=== PATIENT | male | born 1955 | race Hispanic/Latino ===

== ENCOUNTER 2020-01-06 19:31 | Emergency (ER) | payer BC, SELFPAY ==
[2020-01-06 20:25] LABS: Hemoglobin 17.5 g/dL (14.0-18.0); Mean Corpuscular HGB CONC 33.4 g/dL (32.0-36.0); Mean Corpuscular Hemoglobin 30.1 pg (27.0-31.0); Mean Corpuscular Volume 90.1 fL (78.0-98.0); Platelet Count 164 thou/uL (130-400); RBC Distribution Width 13.1 % (11.5-14.5); White Blood Cell (WBC) Count 18.2 thou/uL (4.8-10.8)
--- NOTE | 2020-01-06 20:25 | RAD ---
XR Chest 1 View Portable History: Chest pain Comparison: Radiograph September 2016 Findings: Lungs are clear. No pneumothorax or effusion. Cardiac silhouette and mediastinal contours a re within normal limits. No acute osseous abnormality. Impression: No acute intrathoracic abnormality.
[2020-01-06 20:30] LABS: Bilirubin Negative (Negative); Blood, Urine Negative (Negative); Clarity Clear (Clear); Glucose, Urine (Dipstick) Normal (Negative); Leukocyte Negative Leu/uL (Negative); Nitrite Negative (Negative); Protein, Urine (Dipstick) Negative (Neg-Trace); Urobilinogen Normal mg/dL (Less than 2)
[2020-01-06 20:44] LABS: Band 6 % (5-11); Eosinophils 2 % (0-10); Large Platelets SLIGHT; Lymphocytes 23 % (21-51); MDiff Complete? YES; Monocytes 5 % (0-10); Neutrophil 40 % (42-75); Platelet Morphology Comment Appears Adequate; Polychromasia SLIGHT = 2-3 cells (100X) (0-2/hpf); Reactive Lymphocytes 24 % (0-10)
[2020-01-06 20:45] LABS: ALT (SGPT) 78 U/L (8-55); AST (SGOT) 33 U/L (5-34); Albumin 4.6 g/dL (3.4-4.8); Alkaline Phosphatase 127 U/L (40-110); Anion Gap 15 mmol/L (10-20); BUN (Urea Nitrogen) 13 mg/dL (8.4-25.7); Bilirubin, Total 0.9 mg/dL (0.2-1.2); Calc. Creatinine Clearance 0 mL/min (70-130); Calcium 9.2 mg/dL (7.8-10.44); Carbon Dioxide 25 mmol/L (23-31); Chloride 101 mmol/L (98-107); Estimated GFR-MDRD 89; Glucose 108 mg/dL (80-115); Lipase 25 U/L (8-78); Potassium 3.9 mmol/L (3.5-5.1); Protein, Total 7.6 g/dL (5.8-8.1); Sodium 137 mmol/L (136-145)
--- NOTE | 2020-01-11 14:33 | EKG ---
Test Reason : EMERGENCY EXAM Blood Pressure : / mmHG Vent. Rate : 072 BPM Atrial Rate : 072 BPM P-R Int : 154 ms QRS Dur : 092 ms QT Int : 390 ms P-R-T Axes : 026 -11 -08 degrees QTc Int : 427 ms Normal sinus rhythm Normal ECG Reconfirmed by YUNIOR MUHAMMAD ([id number]), medical transcription editor BIANCA FISH ([id number]) on 01/11/2020 2:33:24 PM Referred By: Confirmed By:YUNIOR Song
== END 2020-01-06 22:31 | disposition home or self-care (01) ==
LOC: ERS 19:31
DX: R53.81 Other malaise (principal); Z79.891 Long term (current) use of opiate analgesic; Z79.899 Other long term (current) drug therapy
CPT/HCPCS: 36415; 71045; 80053; 81003; 83605; 83690; 83735; 84484; 85025; 93005

== ENCOUNTER 2020-02-22 10:03 | Inpatient (IN) | payer OTHER, SELFPAY ==
[~2020-02-22 10:03] MED LIST: Iopamidol 370 76% 100 ML VIAL ONE
[2020-02-22] MEDS ORDERED: Albuterol 200 PUFF (6.7GM INHALER) ONE (10:34)
[2020-02-22 11:29] LABS: ALT (SGPT) 57 U/L (8-55); AST (SGOT) 54 U/L (5-34); Albumin 3.5 g/dL (3.4-4.8); Alkaline Phosphatase 76 U/L (40-110); Anion Gap 14 mmol/L (10-20); BUN (Urea Nitrogen) 8 mg/dL (8.4-25.7); Bilirubin, Total 0.7 mg/dL (0.2-1.2); Calc. Creatinine Clearance 0 mL/min (70-130); Calcium 8.3 mg/dL (7.8-10.44); Carbon Dioxide 22 mmol/L (23-31); Chloride 99 mmol/L (98-107); Estimated GFR-MDRD Greater than 90; Globulin 3.4 g/dL (2.4-3.5); Glucose 97 mg/dL (80-115); Potassium 4.2 mmol/L (3.5-5.1); Protein, Total 6.9 g/dL (5.8-8.1); Sodium 131 mmol/L (136-145)
[2020-02-22 11:52] LABS: #Lymphocytes 1.8 thou/uL (1.20-3.40); #Monocytes 0.6 thou/uL (0.11-0.59); #Neutrophils 3.4 thou/uL (1.40-6.50); %Eosinophils 0.1 % (0.0-10.0); %Lymphocytes 30.9 % (21.0-51.0); Hemoglobin 15.2 g/dL (14.0-18.0); Mean Corpuscular HGB CONC 32.1 g/dL (32.0-36.0); Mean Corpuscular Volume 90.3 fL (78.0-98.0); Mean Platelet Volume 10.4 fL (7.4-10.4); Platelet Count 115 thou/uL (130-400); Platelet Morphology Comment Appears Adequate; RBC Distribution Width 12.9 % (11.5-14.5); RBC Morphology Normal; Red Blood Cell (RBC) Count 5.24 mill/uL (4.70-6.10); White Blood Cell (WBC) Count 5.8 thou/uL (4.8-10.8)
--- NOTE | 2020-02-22 14:12 | RAD ---
PORTABLE CHEST: 02/22/20 HISTORY: Dyspnea. COVID diagnosis with pneumonia. COMPARISON: 01/06/20. FINDINGS/IMPRESSION: There are now bilateral multifocal infiltrates which have occurred since 01/06/20. Numerous bilateral peripheral infiltrates are seen throughout both lungs consistent with COVID pneumonia. POS: AGW
[2020-02-22] MEDS ORDERED: Ketorolac Tromethamine 30 MG/ML VIAL ONE (14:40)
[2020-02-22 17:10] VITALS: BMI 38.7
[2020-02-22] MEDS ORDERED: Ondansetron PF 4 MG/2 ML Vial IVP PRN ×2 (17:15→19:32)
[2020-02-22] MEDS ORDERED: Ondansetron ODT 4 MG TAB SL PRN (17:15)
[2020-02-22] MEDS ORDERED: Acetaminophen 325 MG TAB PO PRN (17:15)
[2020-02-22] MEDS ORDERED: Benzonatate 100 MG CAP PO PRN (19:32)
[2020-02-22] MEDS ORDERED: Ondansetron ODT 4 MG TAB PO PRN (19:32)
[2020-02-22] MEDS ORDERED: Cepastat Lozenges 1 LOZ PO PRN (19:32)
[2020-02-22] MEDS ORDERED: hydrALAZINE 20 MG/ML VIAL SLOW IVP PRN (19:32)
[2020-02-22] MEDS: Azithromycin 500 MG in Sodium Chloride 0.9% 250 ML 250 ML IVPB SCH (20:48)
[2020-02-22] MEDS: Sodium Chloride 0.9% 1,000 ML IV SCH (20:48)
[2020-02-22] MEDS: Zinc Sulfate 220 MG CAP PO SCH (20:48)
[2020-02-22] MEDS: Famotidine 20 MG TAB PO SCH (20:48)
[2020-02-22] MEDS ORDERED: Carvedilol 3.125 MG TAB PO SCH (21:00)
[2020-02-23] MEDS: PROVENTIL INHALER 6.7 G (200 INHALATIONS) INH SCH ×7 (00:24→22:56)
--- NOTE | 2020-02-23 01:29 | HP ---
PRIMARY CARE PROVIDER: [facility], [place], [place]. CHIEF COMPLAINT: Shortness of breath and general malaise. HISTORY OF PRESENT ILLNESS: This is a 64-year-old male, who presents to [facility] Emergency Department complaining of increasing shortness of breath, fatigue and weakness over the last 7 to 10 days. The patient states he was diagnosed with COVID-19 at [facility] approximately 02/15/2020. The patient states he has been self quarantined at home as he was infected by his daughter, who also infected her and their son, who is 18 years of age. The patient states he has had increasing shortness of breath, chest tightness and productive cough. The patient admits to fever, nausea, decreased appetite and some loss of taste. The patient denied taking any home medication remedy other than Tylenol and [id number]-uwrtoxk cough medicine. The patient also states he took penicillin twice daily, but is unsure of the exact medication. The patient denied any known history of lung disease or travel history. In the emergency room, the patient underwent general evaluation with chest imaging showing bilateral infiltrates confirming pneumonia in the context of COVID-19. Initially, patient was noted 95% on room air. However, temperature was 101.3 degrees Fahrenheit. The patient received Proventil HFA two inhalations x1 and Toradol 30 mg IV push. PAST MEDICAL HISTORY: 1. Gastric ulcers with gastritis. 2. Hypertension. PAST SURGICAL HISTORY: 1. Status post exploratory laparotomy for peptic ulcer disease in [place]. 2. Status post cholecystectomy. CURRENT MEDICATIONS: Unknown and will need to be confirmed with family members. ALLERGIES: NO KNOWN DRUG ALLERGIES. FAMILY HISTORY: No inheritable diseases per patient report. SOCIAL HISTORY: Resides in the [place], [place] area. Lives with family members and is usually functional of all activities of daily living. No current alcohol, tobacco, or illicit drug use. REVIEW OF SYSTEMS: CONSTITUTIONAL: Negative for weight loss or gain, ability to conduct usual activities. SKIN: Negative for rash, itching. EYES: Negative for double vision, pain. ENT/MOUTH: Negative for nose bleeding, neck stiffness, pain, tenderness. CARDIOVASCULAR: Negative for palpitations, dyspnea on exertion, orthopnea. RESPIRATORY: Negative for shortness of breath, wheezing, cough, hemoptysis, fever or night sweats. GASTROINTESTINAL: Negative for poor appetite, abdominal pain, heartburn, nausea, vomiting, constipation, or diarrhea. GENITOURINARY: Negative for urgency, frequency, dysuria, nocturia. MUSCULOSKELETAL: Negative for pain, swelling. NEUROLOGIC/PSYCHIATRIC: Negative for anxiety, depression. ALLERGY/IMMUNOLOGIC: Negative for skin rash, bleeding tendency. Otherwise negative except as stated per HPI. PHYSICAL EXAMINATION: VITAL SIGNS: On admission; blood pressure 108/73, pulse 75, respiratory rate 18, temperature 99.3 degrees Fahrenheit with a T-max of 101.3 degrees Fahrenheit. O2 saturation 89% on 2 L/minute by nasal cannula. GENERAL APPEARANCE: This is a 64-year-old male, in moderate respiratory distress, responsive to questions. HEENT: Pupils are equal, round, reactive to light and accommodation. Extraocular muscles are intact. Mild conjunctival injection. No scleral icterus. Nares patent. OP is clear. Teeth in fair repair. NECK: Supple. No cervical adenopathy. No thyromegaly. No carotid bruits. No JVD appreciated. Cervical spine with full active and passive range of motion. No meningeal signs noted. CHEST: Coarse breath sounds bilaterally with diminished air flow bilaterally. Prolonged expiratory phase and occasional wheezing. CARDIOVASCULAR: S1, S2 with tachycardia. No murmur, rub, or gallop appreciated. ABDOMEN: Obese, soft, nontender, and nondistended. Bowel sounds are positive in all 4 quadrants. There is no hepatosplenomegaly. No abdominal bruits. No rebound or guarding appreciated. EXTREMITIES: Warm and dry with fair turgor. No clubbing, cyanosis, or asymmetric edema appreciated. Pulses palpable distally at the dorsalis pedis, posterior tibial, and popliteal arteries bilaterally. Capillary refill less than 2 seconds. NEUROLOGIC: Cranial nerves 2 through 12 are grossly intact. No focal or lateralizing signs appreciated. PERTINENT LABORATORY AND X-RAY FINDINGS: Sodium 131, potassium 4.2, chloride 99, CO2 of 22, BUN 8, creatinine 0.76, glucose 97, lactic acid level 1.0, calcium 8.3, AST 54, ALT of 57. Troponin I negative x1. BNP 23. CBC showed a white blood cell count of 5.8, hemoglobin 15, hematocrit 47, and platelet count 115, with 59% neutrophils. Portable chest x-ray dated 02/22/2020, showed bilateral multifocal infiltrates, new since previous exam 01/06/2020. Findings consistent with COVID viral infection. EKG dated 02/22/2020 by my interpretation shows sinus mechanism with heart rates in the 80s. Normal R-wave progression noted in the precordial leads. Normal axis. T-wave inversion in leads III and F. ASSESSMENT AND PLAN: 1. COVID-19 and pneumonia. The patient will be admitted to the medical floor. We will place respiratory and droplet isolation. Initiate Zithromax 500 mg IV daily. Add Proventil HFA 2 puffs inhaled q.4 hours. Add zinc sulfate 220 mg p.o. daily. Oxygen as needed to maintain O2 saturations greater than or equal to 90%. Consider Infectious Disease consultation in the next 24 hours. 2. Acute hypoxic respiratory failure secondary to #1. See #1 above. Continue oxygen supplementation and titrate to clinical response. 3. Thrombocytopenia. Suspect secondary to #1. Continue serial platelet trending. Avoid heparin or low-molecular weight heparin. 4. Hyponatremia. Suspect secondary to poor oral intake. We will continue intravenous normal saline at 75 mL/h. Encourage increased p.o. intake of regular diet. Serial sodium monitoring. 5. Prophylaxis. Pepcid 20 mg p.o. b.i.d. Respiratory isolation per protocol. 6. Code status is full. Surrogate medical decision maker is the patient's daughter. Job ID: [id number]
[2020-02-23 05:51] LABS: Anion Gap 14 mmol/L (10-20); BUN (Urea Nitrogen) 15 mg/dL (8.4-25.7); Calc. Creatinine Clearance 162 mL/min (70-130); Carbon Dioxide 22 mmol/L (23-31); Chloride 102 mmol/L (98-107); Estimated GFR-MDRD Greater than 90; Glucose 99 mg/dL (80-115); Potassium 4.1 mmol/L (3.5-5.1); Sodium 134 mmol/L (136-145)
[2020-02-23 05:55] LABS: Band 8 % (5-11); Hemoglobin 14.6 g/dL (14.0-18.0); Lymphocytes 19 % (21-51); MDiff Complete? YES; Mean Corpuscular HGB CONC 32.2 g/dL (32.0-36.0); Mean Corpuscular Hemoglobin 29.3 pg (27.0-31.0); Mean Corpuscular Volume 90.9 fL (78.0-98.0); Mean Platelet Volume 9.9 fL (7.4-10.4); Monocytes 4 % (0-10); Neutrophil 69 % (42-75); Platelet Count 135 thou/uL (130-400); Platelet Morphology Comment Appears Adequate; RBC Morphology Normal; Red Blood Cell (RBC) Count 4.97 mill/uL (4.70-6.10); White Blood Cell (WBC) Count 5.9 thou/uL (4.8-10.8)
--- NOTE | 2020-02-23 07:49 | CT ---
PRELIMINARY REPORT/[facility]/EMERGENCY AFTER HOURS PROCEDURE This report was discussed with Kasey Guido RN by Dianne Bravo on February 23, 2020 00:46:00 C DT. Addendum electronically signed by Dianne Bravo on February 23, 2020 12:47:[address] ANGIOGRAM OF THE CHEST CLINICAL HISTORY: Slurred speech TECHNIQUE: Axial images obtained. Coronal images obtained. Sagittal images obtained. Exam is performe d with administration of 100 ml of Isovue-370 intravenous contrast. 3D maximum intensity projections (MIPs) were performed. Per PQRS, CT exam is performed using one or more of the following dose reducti on technique: Automated exposure control, adjustment of mA and/or KV according to patient size, or us e of iterative reconstruction techniques. COMPARISON: None. FINDINGS: Post-contrast appearance of the pulmonary arteries shows no evidence for filling defect. No rmal caliber of pulmonary trunk in relationship to the aorta. Aorta is negative for aortic dissection and aortic aneurysm. No effusion. Extensive consolidations are seen throughout the lung leone sugge sting pneumonia. Coronavirus is in the differential. Negative for pneumothorax. Small mediastinal and hilar lymph nodes are seen. Fatty infiltration of th e liver is seen. Mild disc space narrowing and osteophyte formation of the thoracic spine is seen at multiple levels. The rest of the solid organs, viscera, and bones are unremarkable. IMPRESSION: 1. Negative for pulmonary embolism, aortic aneurysm, or aortic dissection. 2. Extensive consolidations throughout the lung leone suggesting pneumonia. Coronavirus is in the di fferential. ELECTRONICALLY SIGNED BY: Yvan Golden MD February 23, 2020 12:41:25 AM CDT FINAL REPORT CT PULMONARY ANGIOGRAM WITH IV CONTRAST AND 3D POSTPROCESSING: I agree with the preliminary report given by Dr. Yvan Golden of [facility]. Please note there is poor visualization of the peripheral branches of pulmonary arterial vasculature. There is no evid ence of central pulmonary embolism. Peripheral embolism could not be excluded on this exam. Scatter ed round-glass and consolidative changes are consistent with pneumonia with malloy virus in the diffe rential. POS: DANI
[2020-02-23] MEDS: Famotidine 20 MG TAB PO SCH ×2 (08:04→20:25)
[2020-02-23] MEDS: Sodium Chloride 0.9% 1,000 ML IV SCH ×2 (08:04→22:21)
--- NOTE | 2020-02-23 17:14 | PDOC.HOSPP ---
- Subjective Encounter Date: 02/23/20 Encounter Time: 16:45 Subjective: f/u for COVID-19 PNA on Zithromax/IVF's/Zinc. Still requiring O2 by NC and feels SOB with minimal exertion. - Objective Vital Signs & Weight: Vital Signs (12 hours) Temp Pulse Resp BP Pulse Ox 02/23/20 13:00 98.2 F 82 22 H 128/76 97 02/23/20 10:33 74 22 H 02/23/20 08:00 98.4 F 74 24 H 111/78 95 02/23/20 06:41 70 96 02/23/20 05:15 98.5 F 75 32 H 115/81 93 L Weight Weight 270 lb I&O: 02/22/20 02/23/20 02/24/20 06:59 06:59 06:59 Intake Total 1162.5 480 Balance 1162.5 480 Result Diagrams: 02/23/20 05:17 02/23/20 05:17 Additional Labs: Microbiology 02/22/20 10:43 Venous blood - Right Hand Blood Culture - Preliminary Specimen has been received and culture in progress. No Growth to date. 02/22/20 10:35 Venous blood - Left Arm Blood Culture - Preliminary Specimen has been received and culture in progress. No Growth to date. Laboratory Tests 02/22/20 02/22/20 02/22/20 10:58 10:58 20:32 Plt Count 115 L D-Dimer Ferritin 1790.67 H B-Natriuretic Peptide 23.2 02/22/20 20:32 Plt Count D-Dimer 0.60 H Ferritin B-Natriuretic Peptide Radiology Reviewed by me: Yes (CTA chest - no PE, diffuse bilat infiltrates) Hospitalist ROS - Medication Medications: Active Medications Generic Name Dose Route Start Last Admin Trade Name Freq PRN Reason Stop Dose Admin Albuterol Sulfate 2 puff 02/22/20 22:30 02/23/20 14:36 Proventil Hfa INH 2 puff [id number] MIREYA Administration Famotidine 20 mg 02/22/20 21:00 02/23/20 08:04 Pepcid PO 20 mg BID MIREYA Administration Sodium Chloride 1,000 mls @ 75 mls/hr 02/22/20 19:32 02/23/20 08:04 Normal Saline 0.9% IV 1,000 mls .[id number] MIREYA Administration Azithromycin 500 mg/ Sodium 250 mls @ 250 mls/hr 02/22/20 20:00 02/22/20 20: 48 Chloride IVPB 250 mls Q24HR MIREYA Administration Zinc Sulfate 220 mg 02/22/20 21:00 02/22/20 20:48 Zinc Sulfate PO 220 mg HS MIREYA Administration - Exam General Appearance: NAD, awake alert Eye: PERRL, anicteric sclera ENT: normocephalic atraumatic, no oropharyngeal lesions Neck: supple, symmetric, no JVD, no thyromegaly Heart: RRR, no murmur, no gallops, no rubs, normal peripheral pulses Heart - other findings: S1, S2 Respiratory - other findings: coarse sounds bilat, diminished, exp wheeze Gastrointestinal: soft, non-tender, non-distended, normal bowel sounds, no palpable masses Extremities - other findings: R hand with edema with infiltrated IV site Skin: normal turgor Neurological: cranial nerve grossly intact, no new deficit Musculoskeletal: normal tone, normal strength, no muscle wasting Psychiatric: normal affect, A&O x 3 Hosp A/P (1) Pneumonia due to COVID-19 virus Code(s): U07.1 - COVID-19; J12.89 - OTHER VIRAL PNEUMONIA Status: Acute Plan: Continue resp isolation, Zithromax/Hydroxychloroquine/Zinc, ProAir HFA, O2 @ 2L/ min NC (2) Acute respiratory failure with hypoxia Code(s): J96.01 - ACUTE RESPIRATORY FAILURE WITH HYPOXIA Status: Acute Plan: See above (3) Hyponatremia Code(s): E87.1 - HYPO-OSMOLALITY AND HYPONATREMIA Status: Acute Plan: Improved, continue IVF's (4) Thrombocytopenia Code(s): D69.6 - THROMBOCYTOPENIA, UNSPECIFIED Status: Acute Plan: Improved, serial monitoring - Plan continue antibiotics, social work manager, respiratory therapy, out of bed/ambulate , DVT proph w/SCDs Continue Zithromax Continue Plaquenil Resp Isolation Wean O2 as clinically indicated AM lab: BMP
[2020-02-23] MEDS: Azithromycin 500 MG in Sodium Chloride 0.9% 250 ML 250 ML IVPB SCH (19:50)
[2020-02-23] MEDS: Hydroxychloroquine Sulfate 200 MG TAB PO SCH (20:25)
[2020-02-23] MEDS: Zinc Sulfate 220 MG CAP PO SCH (20:25)
[2020-02-24] MEDS: PROVENTIL INHALER 6.7 G (200 INHALATIONS) INH SCH ×6 (02:37→23:27)
[2020-02-24 06:44] LABS: Anion Gap 14 mmol/L (10-20); BUN (Urea Nitrogen) 12 mg/dL (8.4-25.7); Calc. Creatinine Clearance 179 mL/min (70-130); Calcium 8.1 mg/dL (7.8-10.44); Carbon Dioxide 23 mmol/L (23-31); Chloride 104 mmol/L (98-107); Estimated GFR-MDRD Greater than 90; Glucose 104 mg/dL (80-115); Potassium 4.1 mmol/L (3.5-5.1); Sodium 137 mmol/L (136-145)
[2020-02-24] MEDS: Famotidine 20 MG TAB PO SCH (08:21)
[2020-02-24] MEDS: Hydroxychloroquine Sulfate 200 MG TAB PO SCH ×2 (08:21→20:47)
[2020-02-24] MEDS ORDERED: Artificial Tears 18 DROP/0.9 ML EA EYE PRN (08:48)
[2020-02-24] MEDS: Acetaminophen 500 MG TAB PO PRN (12:13)
--- NOTE | 2020-02-24 13:32 | PDOC.HOSPP ---
- Subjective Encounter Date: 02/24/20 Encounter Time: 10:30 Subjective: Patient seen and examined for COVID Pneumonia. SOB improving. No new complaints. No overnight events - Objective Vital Signs & Weight: Vital Signs (12 hours) Temp Pulse Resp BP Pulse Ox 02/24/20 12:30 98.1 F 78 18 126/75 94 L 02/24/20 08:21 98.1 F 69 18 114/62 95 02/24/20 06:12 71 94 L 02/24/20 04:00 98.3 F 71 18 111/71 94 L Weight Weight 270 lb I&O: 02/23/20 02/24/20 02/25/20 06:59 06:59 06:59 Intake Total 1162.5 1965 Balance 1162.5 1965 Result Diagrams: 02/23/20 05:17 02/24/20 06:13 Radiology Reviewed by me: Yes (CTA - Pneumonia) Hospitalist ROS - Review of Systems Respiratory: reports: SOB with excertion. denies: cough, dry, shortness of breath, hemoptysis, pleuritic pain, sputum, wheezing, other Cardiovascular: denies: chest pain, palpitations, orthopnea, paroxysmal noc. dyspnea, edema, light headedness, other Gastrointestinal: denies: nausea, vomiting, abdominal pain, diarrhea, constipation, melena, hematochezia, other - Medication Medications: Active Medications Generic Name Dose Route Start Last Admin Trade Name Freq PRN Reason Stop Dose Admin Acetaminophen 1,000 mg 02/22/20 19:32 02/24/20 12:13 Tylenol PO 1,000 mg Q6H PRN Administration Mild Pain (1-3) Albuterol Sulfate 2 puff 02/22/20 22:30 02/24/20 10:40 Proventil Hfa INH 2 puff [id number] MIREYA Administration Artificial Tears 0 drop 02/24/20 08:48 02/24/20 12:13 Tears Naturale EA EYE 1 drop PRN PRN Administration Dry Eyes Benzonatate 100 mg 02/22/20 19:32 02/23/20 20:25 Tessalon PO 100 mg Q6H PRN Administration Cough Famotidine 20 mg 02/22/20 21:00 02/24/20 08:21 Pepcid PO 20 mg BID MIREYA Administration Hydroxychloroquine Sulfate 200 mg 02/23/20 21:00 02/24/20 08:21 Plaquenil PO 200 mg BID MIREYA Administration Azithromycin 500 mg/ Sodium 250 mls @ 250 mls/hr 02/22/20 20:00 02/23/20 19: 50 Chloride IVPB 250 mls Q24HR MIREYA Administration Zinc Sulfate 220 mg 02/22/20 21:00 02/23/20 20:25 Zinc Sulfate PO 220 mg HS MIREYA Administration - Exam General Appearance: NAD Heart: RRR, no gallops, no rubs, normal peripheral pulses Respiratory: normal chest expansion, no tachypnea, rales, rhonchi Gastrointestinal: soft, non-tender, normal bowel sounds, no guarding, no rigidity Extremities: no cyanosis, no clubbing Neurological: no new deficit Psychiatric: normal affect, A&O x 3 Hosp A/P - Plan DVT proph w/SCDs Acute hypoxic resp failure due to COVID Pneumonia Obesity BMI 38.7 Hyponatremia GERD Thrombocytopenia HTN PLAN: Cont IV Atbx Monitor QT interval daily Wean O2 Cont MDIs Add Vit C Cont Zinc AM labs DC IVF Add Lovenox for DVT prophylaxis Resume Coreg in AM Will d/w Dr Hernandez
[2020-02-24] MEDS: Ascorbic Acid 500 mg Chewable Tablet PO SCH ×2 (15:54→20:47)
[2020-02-24] MEDS: guaiFENesin ER 600 MG TAB PO SCH (20:47)
[2020-02-24] MEDS: Zinc Sulfate 220 MG CAP PO SCH (20:47)
[2020-02-24] MEDS: Azithromycin 500 MG in Sodium Chloride 0.9% 250 ML 250 ML IVPB SCH (20:47)
[2020-02-25] MEDS: PROVENTIL INHALER 6.7 G (200 INHALATIONS) INH SCH ×6 (02:48→19:59)
[2020-02-25 06:32] LABS: Band 1 % (5-11); Hemoglobin 14.3 g/dL (14.0-18.0); Lymphocytes 15 % (21-51); MDiff Complete? YES; Mean Corpuscular HGB CONC 32.8 g/dL (32.0-36.0); Mean Corpuscular Hemoglobin 29.9 pg (27.0-31.0); Mean Corpuscular Volume 91.2 fL (78.0-98.0); Mean Platelet Volume 9.8 fL (7.4-10.4); Monocytes 19 % (0-10); Neutrophil 65 % (42-75); Platelet Count 198 thou/uL (130-400); Platelet Morphology Comment Appears Adequate; RBC Morphology Normal; White Blood Cell (WBC) Count 6.5 thou/uL (4.8-10.8)
[2020-02-25 06:36] LABS: ALT (SGPT) 67 U/L (8-55); AST (SGOT) 45 U/L (5-34); Albumin 3.2 g/dL (3.4-4.8); Alkaline Phosphatase 81 U/L (40-110); Anion Gap 13 mmol/L (10-20); BUN (Urea Nitrogen) 8 mg/dL (8.4-25.7); Bilirubin, Total 0.7 mg/dL (0.2-1.2); Calc. Creatinine Clearance 187 mL/min (70-130); Calcium 8.5 mg/dL (7.8-10.44); Carbon Dioxide 23 mmol/L (23-31); Chloride 104 mmol/L (98-107); Estimated GFR-MDRD Greater than 90; Globulin 3.3 g/dL (2.4-3.5); Glucose 117 mg/dL (80-115); Magnesium 1.9 mg/dL (1.6-2.6); Protein, Total 6.5 g/dL (5.8-8.1); Sodium 136 mmol/L (136-145)
[2020-02-25] MEDS: guaiFENesin ER 600 MG TAB PO SCH ×2 (08:32→19:59)
[2020-02-25] MEDS: Enoxaparin Sodium 40 MG/0.4 ML SYRINGE SC SCH (08:32)
[2020-02-25] MEDS: Saccharomyces boulardii 250 MG CAP PO SCH (08:32)
[2020-02-25] MEDS: Hydroxychloroquine Sulfate 200 MG TAB PO SCH ×2 (08:32→19:59)
[2020-02-25] MEDS: Carvedilol 3.125 MG TAB PO SCH ×2 (08:32→19:59)
[2020-02-25] MEDS: Ascorbic Acid 500 mg Chewable Tablet PO SCH ×3 (08:32→19:59)
[2020-02-25] MEDS ORDERED: Metoclopramide HCl 10 MG/2 ML VIAL IVP PRN (12:40)
--- NOTE | 2020-02-25 15:29 | PDOC.HOSPP ---
- Subjective Encounter Date: 02/25/20 Encounter Time: 11:30 Subjective: Patient seen and examine for Resp failure. SOB improving. No new complaints. No overnight events - Objective Vital Signs & Weight: Vital Signs (12 hours) Temp Pulse Resp BP Pulse Ox 02/25/20 10:19 98.4 F 64 18 111/64 91 L 02/25/20 08:31 20 94 L 02/25/20 07:26 94 L 02/25/20 04:00 98.1 F 73 20 115/70 93 L Weight Weight 270 lb I&O: 02/24/20 02/25/20 02/26/20 06:59 06:59 06:59 Intake Total 1964 1979 Balance 1964 1979 Result Diagrams: 02/26/20 05:10 02/26/20 05:10 EKG Reviewed by me: Yes (SR) Hospitalist ROS - Review of Systems Respiratory: reports: SOB with excertion. denies: cough, dry, shortness of breath, hemoptysis, pleuritic pain, sputum, wheezing, other Cardiovascular: denies: chest pain, palpitations, orthopnea, paroxysmal noc. dyspnea, edema, light headedness, other - Medication Medications: Active Medications Generic Name Dose Route Start Last Admin Trade Name Freq PRN Reason Stop Dose Admin Acetaminophen 1,000 mg 02/22/20 19:32 02/24/20 12:13 Tylenol PO 1,000 mg Q6H PRN Administration Mild Pain (1-3) Albuterol Sulfate 2 puff 02/22/20 22:30 02/25/20 13:30 Proventil Hfa INH 2 puff [id number] MIREYA Administration Artificial Tears 0 drop 02/24/20 08:48 02/24/20 12:13 Tears Naturale EA EYE 1 drop PRN PRN Administration Dry Eyes Ascorbic Acid 1,000 mg 02/24/20 15:00 02/25/20 15:06 Vitamin C PO 1,000 mg TID MIREYA Administration Benzonatate 100 mg 02/22/20 19:32 02/23/20 20:25 Tessalon PO 100 mg Q6H PRN Administration Cough Carvedilol 3.125 mg 02/25/20 09:00 02/25/20 08:32 Coreg PO 3.125 mg BID MIREYA Administration Enoxaparin Sodium 40 mg 02/25/20 09:00 02/25/20 08:32 Lovenox SC 40 mg 0900 MIREYA Administration Guaifenesin 600 mg 02/24/20 21:00 02/25/20 08:32 Mucinex PO 600 mg Q12HR MIREYA Administration Hydroxychloroquine Sulfate 200 mg 02/23/20 21:00 02/25/20 08:32 Plaquenil PO 200 mg BID MIREYA Administration Azithromycin 500 mg/ Sodium 250 mls @ 250 mls/hr 02/22/20 20:00 02/24/20 20: 47 Chloride IVPB 250 mls Q24HR MIREYA Administration Pantoprazole Sodium 40 mg 02/25/20 09:00 02/25/20 08:32 Protonix PO 40 mg DAILY MIREYA Administration Saccharomyces Boulardii 250 mg 02/25/20 09:00 02/25/20 08:32 Florastor PO 250 mg DAILY MIREYA Administration Zinc Sulfate 220 mg 02/22/20 21:00 02/24/20 20:47 Zinc Sulfate PO 220 mg HS MIREYA Administration - Exam General Appearance: NAD Neck: supple, no JVD Heart: RRR, no gallops, no rubs, normal peripheral pulses Respiratory: no wheezes, no ronchi, rales, rhonchi Gastrointestinal: non-tender, non-distended, normal bowel sounds Extremities: no cyanosis, no clubbing Neurological: no new deficit Psychiatric: normal affect, A&O x 3 Hosp A/P - Plan DVT proph w/SCDs Acute hypoxic resp failure due to COVID Pneumonia Obesity BMI 38.7 Hyponatremia GERD Thrombocytopenia HTN PLAN: Cont IV Azithromycin/Plaquenil Cont Coreg QT interval -ok Cont wean O2 Cont MDIs Cont Vit C/Zinc AM labs Will d/w Dr Hernandez
[2020-02-25] MEDS: Zinc Sulfate 220 MG CAP PO SCH (20:00)
[2020-02-25] MEDS: Azithromycin 500 MG in Sodium Chloride 0.9% 250 ML 250 ML IVPB SCH (20:01)
[2020-02-26] MEDS: PROVENTIL INHALER 6.7 G (200 INHALATIONS) INH SCH ×6 (02:06→21:29)
[2020-02-26 05:43] LABS: Band 5 % (5-11); Eosinophils 2 % (0-10); Hemoglobin 13.4 g/dL (14.0-18.0); Lymphocytes 21 % (21-51); MDiff Complete? YES; Mean Corpuscular HGB CONC 30.7 g/dL (32.0-36.0); Mean Corpuscular Hemoglobin 27.9 pg (27.0-31.0); Mean Corpuscular Volume 90.9 fL (78.0-98.0); Mean Platelet Volume 9.4 fL (7.4-10.4); Monocytes 4 % (0-10); Neutrophil 67 % (42-75); Platelet Count 224 thou/uL (130-400); Platelet Morphology Comment Appears Adequate; RBC Distribution Width 12.9 % (11.5-14.5); Reactive Lymphocytes 1 % (0-10); Red Blood Cell (RBC) Count 4.82 mill/uL (4.70-6.10); White Blood Cell (WBC) Count 7.3 thou/uL (4.8-10.8)
[2020-02-26 05:55] LABS: ALT (SGPT) 55 U/L (8-55); AST (SGOT) 35 U/L (5-34); Albumin 3.1 g/dL (3.4-4.8); Alkaline Phosphatase 76 U/L (40-110); Anion Gap 12 mmol/L (10-20); BUN (Urea Nitrogen) 10 mg/dL (8.4-25.7); Bilirubin, Total 0.7 mg/dL (0.2-1.2); Calc. Creatinine Clearance 187 mL/min (70-130); Calcium 8.4 mg/dL (7.8-10.44); Carbon Dioxide 24 mmol/L (23-31); Chloride 104 mmol/L (98-107); Estimated GFR-MDRD Greater than 90; Globulin 3.3 g/dL (2.4-3.5); Glucose 101 mg/dL (80-115); Potassium 4.1 mmol/L (3.5-5.1); Protein, Total 6.4 g/dL (5.8-8.1); Sodium 136 mmol/L (136-145)
[2020-02-26] MEDS: Ascorbic Acid 500 mg Chewable Tablet PO SCH ×3 (07:50→21:30)
[2020-02-26] MEDS: guaiFENesin ER 600 MG TAB PO SCH ×2 (07:50→21:30)
[2020-02-26] MEDS: Hydroxychloroquine Sulfate 200 MG TAB PO SCH (07:51)
[2020-02-26] MEDS: Saccharomyces boulardii 250 MG CAP PO SCH (07:51)
[2020-02-26] MEDS: Carvedilol 3.125 MG TAB PO SCH ×2 (07:51→21:30)
[2020-02-26] MEDS: Enoxaparin Sodium 40 MG/0.4 ML SYRINGE SC SCH (07:51)
--- NOTE | 2020-02-26 16:27 | EKG ---
Test Reason : Blood Pressure : / mmHG Vent. Rate : 075 BPM Atrial Rate : 075 BPM P-R Int : 152 ms QRS Dur : 092 ms QT Int : 374 ms P-R-T Axes : 026 -01 -08 degrees QTc Int : 417 ms Normal sinus rhythm Normal ECG When compared with ECG of 22-FEB-2020 10:51, No significant change was found Confirmed by SUPRIYA MEDINA, DR. Bush ([id number]) on 02/26/2020 4:27:06 PM Referred By: CRISELDA Confirmed By:DR. Rachelle EPPS MD
[2020-02-26] MEDS: Zinc Sulfate 220 MG CAP PO SCH (21:30)
[2020-02-26] MEDS: Acetaminophen 500 MG TAB PO PRN (21:42)
[2020-02-27] MEDS: PROVENTIL INHALER 6.7 G (200 INHALATIONS) INH SCH ×6 (01:45→22:00)
[2020-02-27] MEDS: Saccharomyces boulardii 250 MG CAP PO SCH (07:42)
[2020-02-27] MEDS: Enoxaparin Sodium 40 MG/0.4 ML SYRINGE SC SCH (07:42)
[2020-02-27] MEDS: Carvedilol 3.125 MG TAB PO SCH ×2 (07:43→22:01)
[2020-02-27] MEDS: Ascorbic Acid 500 mg Chewable Tablet PO SCH ×3 (07:43→22:01)
[2020-02-27] MEDS: guaiFENesin ER 600 MG TAB PO SCH ×2 (07:43→22:01)
--- NOTE | 2020-02-27 08:45 | PDOC.HOSPP ---
- Subjective Encounter Date: 02/26/20 Encounter Time: 12:00 Subjective: Patient seen and examined for COVID Pneumonia. No new complaints. No overnight events - Objective Vital Signs & Weight: Vital Signs (12 hours) Temp Pulse Resp BP Pulse Ox 02/27/20 08:00 98.3 F 69 18 120/67 96 02/27/20 04:41 98.1 F 69 18 92/67 95 02/27/20 00:42 98.4 F 69 16 100/67 95 Weight Weight 270 lb I&O: 02/26/20 02/27/20 02/28/20 06:59 06:59 06:59 Intake Total 730 Balance 730 Result Diagrams: 02/26/20 05:10 02/26/20 05:10 Hospitalist ROS - Review of Systems Respiratory: denies: cough, dry, shortness of breath, hemoptysis, SOB with excertion, pleuritic pain, sputum, wheezing, other Cardiovascular: denies: chest pain, palpitations, orthopnea, paroxysmal noc. dyspnea, edema, light headedness, other Gastrointestinal: denies: nausea, vomiting, abdominal pain, diarrhea, constipation, melena, hematochezia, other - Medication Medications: Active Medications Generic Name Dose Route Start Last Admin Trade Name Freq PRN Reason Stop Dose Admin Acetaminophen 1,000 mg 02/22/20 19:32 02/26/20 21:42 Tylenol PO 1,000 mg Q6H PRN Administration Mild Pain (1-3) Albuterol Sulfate 2 puff 02/22/20 22:30 02/27/20 05:57 Proventil Hfa INH 2 puff [id number] MIREYA Administration Artificial Tears 0 drop 02/24/20 08:48 02/24/20 12:13 Tears Naturale EA EYE 1 drop PRN PRN Administration Dry Eyes Ascorbic Acid 1,000 mg 02/24/20 15:00 02/27/20 07:43 Vitamin C PO 1,000 mg TID MIREYA Administration Benzonatate 100 mg 02/22/20 19:32 02/23/20 20:25 Tessalon PO 100 mg Q6H PRN Administration Cough Carvedilol 3.125 mg 02/25/20 09:00 02/27/20 07:43 Coreg PO 3.125 mg BID MIREYA Administration Enoxaparin Sodium 40 mg 02/25/20 09:00 02/27/20 07:42 Lovenox SC 40 mg 0900 IMREYA Administration Guaifenesin 600 mg 02/24/20 21:00 02/27/20 07:43 Mucinex PO 600 mg Q12HR MIREYA Administration Pantoprazole Sodium 40 mg 02/25/20 09:00 02/27/20 07:43 Protonix PO 40 mg DAILY MIREYA Administration Saccharomyces Boulardii 250 mg 02/25/20 09:00 02/27/20 07:42 Florastor PO 250 mg DAILY MIREYA Administration Zinc Sulfate 220 mg 02/22/20 21:00 02/26/20 21:30 Zinc Sulfate PO 220 mg HS MIREYA Administration - Exam General Appearance: NAD Heart: RRR, no gallops Respiratory: no wheezes, no ronchi, rales (at bases), rhonchi Gastrointestinal: soft, non-tender, non-distended, normal bowel sounds Extremities: no cyanosis Neurological: no new deficit Psychiatric: normal affect, A&O x 3 Hosp A/P - Plan DVT proph w/lovenox, DVT proph w/SCDs Acute hypoxic resp failure due to COVID Pneumonia Obesity BMI 38.7 Hyponatremia GERD Thrombocytopenia HTN PLAN: DC IV Azithromycin/Plaquenil - I d/w Dr Hernandez in detail Cont Coreg Cont wean O2 Cont MDIs Cont Vit C/Zinc Duplex before dc per Dr Hernandez
[2020-02-27] MEDS ORDERED: Cepastat Lozenges 1 LOZ PO PRN (10:39)
[2020-02-27] MEDS ORDERED: Calcium Carbonate 500 MG ChewTAB PO PRN (10:40)
[2020-02-27] MEDS ORDERED: Mag-Al 1200 mg/1200 mg/30 ML UDCUP PO PRN (10:40)
[2020-02-27] MEDS: Nystatin 500,000 UNITS/5 ML UDCUP SSW SCH (22:00)
[2020-02-27] MEDS: Zinc Sulfate 220 MG CAP PO SCH (22:01)
[2020-02-28] MEDS: PROVENTIL INHALER 6.7 G (200 INHALATIONS) INH SCH ×6 (01:00→21:22)
[2020-02-28 06:36] LABS: #Eosinphils 0.1 thou/uL (0.0-0.7); #Lymphocytes 2.1 thou/uL (1.20-3.40); #Monocytes 0.7 thou/uL (0.11-0.59); #Neutrophils 4.3 thou/uL (1.40-6.50); %Eosinophils 0.9 % (0.0-10.0); %Lymphocytes 29.2 % (21.0-51.0); %Neutrophils 59.9 % (42.0-75.0); Hemoglobin 14.2 g/dL (14.0-18.0); Mean Corpuscular HGB CONC 32.7 g/dL (32.0-36.0); Mean Corpuscular Hemoglobin 29.9 pg (27.0-31.0); Mean Corpuscular Volume 91.4 fL (78.0-98.0); Mean Platelet Volume 9.4 fL (7.4-10.4); Platelet Count 256 thou/uL (130-400); RBC Distribution Width 13.2 % (11.5-14.5); Red Blood Cell (RBC) Count 4.74 mill/uL (4.70-6.10); White Blood Cell (WBC) Count 7.2 thou/uL (4.8-10.8)
[2020-02-28 06:56] LABS: ALT (SGPT) 57 U/L (8-55); AST (SGOT) 38 U/L (5-34); Albumin 3.1 g/dL (3.4-4.8); Alkaline Phosphatase 82 U/L (40-110); Anion Gap 13 mmol/L (10-20); BUN (Urea Nitrogen) 10 mg/dL (8.4-25.7); Bilirubin, Total 0.6 mg/dL (0.2-1.2); CRP (Inflammatory) 3.85 mg/dL (= or < 0.5); Calc. Creatinine Clearance 182 mL/min (70-130); Calcium 8.5 mg/dL (7.8-10.44); Carbon Dioxide 24 mmol/L (23-31); Chloride 104 mmol/L (98-107); Estimated GFR-MDRD Greater than 90; Globulin 3.6 g/dL (2.4-3.5); Glucose 116 mg/dL (80-115); Magnesium 1.8 mg/dL (1.6-2.6); Potassium 3.9 mmol/L (3.5-5.1); Protein, Total 6.7 g/dL (5.8-8.1); Sodium 137 mmol/L (136-145)
--- NOTE | 2020-02-28 07:45 | PDOC.HOSPP ---
- Subjective Encounter Date: 02/27/20 Encounter Time: 17:00 Subjective: Patient seen and examined for Pneumonia. Feels better. No CP. No new complaints. No overnight events - Objective Vital Signs & Weight: Vital Signs (12 hours) Temp Pulse Resp BP Pulse Ox 02/28/20 05:15 98.1 F 66 28 H 120/82 95 02/28/20 01:00 69 28 H 97 02/28/20 00:00 69 97 02/27/20 22:00 98.2 F 76 28 H 117/80 93 L 02/27/20 20:00 93 L Weight Weight 270 lb I&O: 02/27/20 02/28/20 02/29/20 06:59 06:59 06:59 Intake Total 730 960 Balance 730 960 Result Diagrams: 02/28/20 06:18 02/28/20 06:18 Hospitalist ROS - Review of Systems Respiratory: denies: cough, dry, shortness of breath, hemoptysis, SOB with excertion, pleuritic pain, sputum, wheezing, other Cardiovascular: denies: chest pain, palpitations, orthopnea, paroxysmal noc. dyspnea, edema, light headedness, other - Medication Medications: Active Medications Generic Name Dose Route Start Last Admin Trade Name Freq PRN Reason Stop Dose Admin Acetaminophen 1,000 mg 02/22/20 19:32 02/26/20 21:42 Tylenol PO 1,000 mg Q6H PRN Administration Mild Pain (1-3) Albuterol Sulfate 2 puff 02/22/20 22:30 02/28/20 05:15 Proventil Hfa INH 2 puff [id number] MIREYA Administration Artificial Tears 0 drop 02/24/20 08:48 02/24/20 12:13 Tears Naturale EA EYE 1 drop PRN PRN Administration Dry Eyes Ascorbic Acid 1,000 mg 02/24/20 15:00 02/27/20 22:01 Vitamin C PO 1,000 mg TID MIREYA Administration Benzonatate 100 mg 02/22/20 19:32 02/23/20 20:25 Tessalon PO 100 mg Q6H PRN Administration Cough Carvedilol 3.125 mg 02/25/20 09:00 02/27/20 22:01 Coreg PO 3.125 mg BID MIREYA Administration Enoxaparin Sodium 40 mg 02/25/20 09:00 02/27/20 07:42 Lovenox SC 40 mg 0900 MIREYA Administration Guaifenesin 600 mg 02/24/20 21:00 02/27/20 22:01 Mucinex PO 600 mg Q12HR MIREYA Administration Nystatin 500,000 units 02/27/20 21:00 02/27/20 22:00 Mycostatin SSW 500,000 units QID MIREYA Administration Pantoprazole Sodium 40 mg 02/25/20 09:00 02/27/20 07:43 Protonix PO 40 mg DAILY MIREYA Administration Saccharomyces Boulardii 250 mg 02/25/20 09:00 02/27/20 07:42 Florastor PO 250 mg DAILY MIREYA Administration Zinc Sulfate 220 mg 02/22/20 21:00 02/27/20 22:01 Zinc Sulfate PO 220 mg HS MIREYA Administration - Exam General Appearance: NAD Heart: RRR, no gallops Respiratory: no wheezes, rhonchi Gastrointestinal: soft, non-distended Extremities: no cyanosis, no clubbing Hosp A/P - Plan DVT proph w/SCDs Acute hypoxic resp failure due to COVID Pneumonia Obesity BMI 38.7 Hyponatremia GERD Thrombocytopenia HTN PLAN: AM labs including ferritin/CRP/D-dimer Cont Coreg, MDIs,Vit C/Zinc and other meds as above Cont wean O2 Duplex B/L LE per Dr Hernandez
[2020-02-28] MEDS: Nystatin 500,000 UNITS/5 ML UDCUP SSW SCH ×4 (08:46→21:21)
[2020-02-28] MEDS: guaiFENesin ER 600 MG TAB PO SCH ×2 (08:46→21:21)
[2020-02-28] MEDS: Enoxaparin Sodium 40 MG/0.4 ML SYRINGE SC SCH (08:46)
[2020-02-28] MEDS: Carvedilol 3.125 MG TAB PO SCH ×2 (08:47→21:21)
[2020-02-28] MEDS: Saccharomyces boulardii 250 MG CAP PO SCH (08:47)
[2020-02-28] MEDS: Ascorbic Acid 500 mg Chewable Tablet PO SCH ×3 (09:15→21:21)
--- NOTE | 2020-02-28 10:40 | ULT ---
ULTRASOUND DOPPLER DUPLEX VENOUS BILATERAL LOWER EXTREMITIES: DATE: 02/28/2020 HISTORY: 64-year-old male with increased risk for DVT due to hypercoagulable state due to COVID-[address] ate. Dyspnea and elevated d-dimer. TECHNIQUE: Grayscale, color-flow, and spectral analysis, of major veins of bilateral lower extremities. FINDINGS: There is demonstration of blood flow with normal compressibility, of the bilateral common femoral, pr ofunda femoral, greater saphenous, femoral, popliteal, and posterior tibial, veins. IMPRESSION: Negative. No deep venous thrombosis of bilateral lower extremities.
--- NOTE | 2020-02-28 15:49 | RAD ---
PORTABLE CHEST: INDICATION: COVID pneumonia. COMPARISON: 02/22/2020. FINDINGS/IMPRESSION: There are bilateral patchy peripheral infiltrates seen in both lung leone more prominent in the mid and lower lung leone bilaterally. These infiltrates show increased density today which may indicate increasing consolidation. POS: AGW
[2020-02-28] MEDS: Zinc Sulfate 220 MG CAP PO SCH (21:21)
--- NOTE | 2020-02-28 22:33 | CON ---
DATE OF CONSULTATION: 02/28/2020 REASON FOR CONSULTATION: COVID-19. HISTORY OF PRESENT ILLNESS: A 64-year-old with history of hypertension, degenerative joint disease with prior knee replacement, as well as obesity who developed dyspnea on February 14. He went to [facility] and was diagnosed with COVID and then on 02/21, he came to the emergency room because of worsening dyspnea. Initial findings were BP 130/80, pulse 81, respirations 40, temperature 101.3, O2 saturations 95 on room air. He had inspiratory crackles diffusely spread through lung leone. The heart examination was normal. The abdomen was soft. Neuro examination normal. The initial imaging on the demonstrated bilateral multifocal infiltrates and a CT angio was negative for pulmonary embolism. There were extensive consolidations through all lung leone suggesting pneumonia. The COVID-19 test was done elsewhere and was positive. The patient has been managed initially with hydroxychloroquine, but that was discontinued. Over the past few days, his O2 saturations have decreased to 88 and now is at 91 with O2 supplementation at 3 L. We were asked to see the patient because he wanted to go home. He is now in bed. He is still a little bit tachypneic. He denies headaches, coughing a little bit. No chest pain. No abdominal pain or diarrhea. No genitourinary symptoms. PAST MEDICAL HISTORY: Obesity, hypertension, degenerative joint disease with prior knee replacement, gastric ulcers, gastritis, cholecystectomy. SOCIAL HISTORY: Never a smoker, from [place]. ALLERGIES: NONE. CURRENT MEDICATIONS: 1. Tylenol. 2. Maalox. 3. Proventil. 4. Tessalon. 5. Tums. 6. Coreg. 7. Lovenox. 8. Mucinex. 9. Reglan. 10. Florastor. PHYSICAL EXAMINATION: VITAL SIGNS: Temperature normal, BP 107/75, pulse 68, respirations 18, and O2 saturation 91 at 3 L. LUNGS: Reveal symmetric air entry, a few crackles here and there. No wheezing. HEART: S1, S2, regular rate. ABDOMEN: Moderately distended, but not tender. No organomegaly or ascites. No bladder distention. EXTREMITIES: No joint inflammatory activity or edema. Pulses 1+ in dorsalis pedis. Moves all extremities equally. LABORATORY DATA: White cell count 7.2, hemoglobin 14, platelets 256 with a normal differential, lymphocytes are 2.1. D-dimer is 2.9. Ferritin was 1700, is down to 544. CRP is down from 6 to 3.85. The patient had a venogram which did show no DVT today. Repeat chest x-ray has been ordered. ASSESSMENT: Hypertension, obesity, COVID-19 pneumonia. DISCUSSION: The patient has moderate hypoxemia and he could easily deteriorate and end up in the ICU. In the good side, his inflammatory markers seem to be getting better, but I would certainly not discharge him just yet. We will go ahead and check his COVID antibodies and see if he is developing antibody response. If he is not and his chest x-ray is worse or not better, then I would consider convalescent plasma infusion and tocilizumab. In that case, we would consult Pulmonary Medicine. He might be a candidate for remdesivir as well since we have available of some treatment courses for about 6 patients. Job ID: [id number]
[2020-02-29] MEDS: PROVENTIL INHALER 6.7 G (200 INHALATIONS) INH SCH ×6 (02:15→21:11)
--- NOTE | 2020-02-29 08:36 | PDOC.HOSPP ---
- Subjective Encounter Date: 02/28/20 Encounter Time: 12:00 Subjective: Patient seen and examined for COVID Pneumonia. On 3 lit O2. No new complaints. No overnight events - Objective Vital Signs & Weight: Vital Signs (12 hours) Temp Pulse Resp BP Pulse Ox 02/29/20 04:00 98.4 F 80 20 111/79 93 L 02/29/20 01:00 67 20 117/76 94 L Weight Weight 270 lb I&O: 02/28/20 02/29/20 03/01/20 06:59 06:59 06:59 Intake Total 960 1000 Balance 960 1000 Result Diagrams: 02/28/20 06:18 02/28/20 06:18 Radiology Reviewed by me: Yes (CXR - B/L Pneumonia) Hospitalist ROS - Review of Systems Cardiovascular: denies: chest pain, palpitations, orthopnea, paroxysmal noc. dyspnea, edema, light headedness, other Gastrointestinal: denies: nausea, vomiting, abdominal pain, diarrhea, constipation, melena, hematochezia, other - Medication Medications: Active Medications Generic Name Dose Route Start Last Admin Trade Name Freq PRN Reason Stop Dose Admin Acetaminophen 1,000 mg 02/22/20 19:32 02/26/20 21:42 Tylenol PO 1,000 mg Q6H PRN Administration Mild Pain (1-3) Albuterol Sulfate 2 puff 02/22/20 22:30 02/29/20 07:24 Proventil Hfa INH 2 puff [id number] MIREAY Administration Artificial Tears 0 drop 02/24/20 08:48 02/24/20 12:13 Tears Naturale EA EYE 1 drop PRN PRN Administration Dry Eyes Ascorbic Acid 1,000 mg 02/24/20 15:00 02/28/20 21:21 Vitamin C PO 1,000 mg TID MIREYA Administration Benzonatate 100 mg 02/22/20 19:32 02/23/20 20:25 Tessalon PO 100 mg Q6H PRN Administration Cough Carvedilol 3.125 mg 02/25/20 09:00 02/28/20 21:21 Coreg PO Not Given BID MIREYA Enoxaparin Sodium 40 mg 02/25/20 09:00 02/28/20 08:46 Lovenox SC 40 mg 0900 MIREYA Administration Guaifenesin 600 mg 02/24/20 21:00 02/28/20 21:21 Mucinex PO 600 mg Q12HR MIREYA Administration Nystatin 500,000 units 02/27/20 21:00 02/28/20 21:21 Mycostatin SSW 500,000 units QID MIREYA Administration Pantoprazole Sodium 40 mg 02/25/20 09:00 02/28/20 08:47 Protonix PO 40 mg DAILY MIREYA Administration Saccharomyces Boulardii 250 mg 02/25/20 09:00 02/28/20 08:47 Florastor PO 250 mg DAILY MIREYA Administration Zinc Sulfate 220 mg 02/22/20 21:00 02/28/20 21:21 Zinc Sulfate PO 220 mg HS MIREYA Administration - Exam General Appearance: NAD Neurological: no new deficit Psychiatric: normal affect, A&O x 3 Hosp A/P - Plan DVT proph w/SCDs Acute hypoxic resp failure due to COVID Pneumonia Obesity BMI 38.7 Hyponatremia GERD Thrombocytopenia HTN PLAN: CXR reviewed Case d/w Dr Hernandez Consult ID Cont Coreg, MDIs,Vit C/Zinc and other meds as above Cont wean O2 Duplex B/L LE negative
[2020-02-29] MEDS: guaiFENesin ER 600 MG TAB PO SCH ×2 (09:18→21:10)
[2020-02-29] MEDS: Saccharomyces boulardii 250 MG CAP PO SCH (09:18)
[2020-02-29] MEDS: Nystatin 500,000 UNITS/5 ML UDCUP SSW SCH ×4 (09:18→21:10)
[2020-02-29] MEDS: Carvedilol 3.125 MG TAB PO SCH ×2 (09:18→21:09)
[2020-02-29] MEDS: Ascorbic Acid 500 mg Chewable Tablet PO SCH ×3 (09:18→21:09)
[2020-02-29] MEDS: Enoxaparin Sodium 40 MG/0.4 ML SYRINGE SC SCH ×2 (09:18→21:10)
[2020-02-29] MEDS ORDERED: Doxycycline 100 MG CAP PO SCH (11:00)
[2020-02-29] MEDS ORDERED: predniSONE 20 MG TAB PO SCH (12:00)
--- NOTE | 2020-02-29 12:05 | CON ---
DATE OF CONSULTATION: HISTORY OF PRESENT ILLNESS: Mike Ely is a 64-year-old [place] gentleman, who has been in the hospital here since the , being consulted today regarding his pulmonary status. He is a coronavirus positive patient, he is eager to go home, but apparently his oxygen saturations are low. Additionally, x-ray shows extensive bilateral pulmonary infiltrates. He has received Zithromax, Plaquenil. He is short of breath, though he saturates on 2 L as per the nurses was 100%. He is coughing and sputum is clear. He denies any chest pain. He does get short of breath with exertion. PAST MEDICAL HISTORY: Pertinent for gastritis. PAST SURGICAL HISTORY: Cholecystectomy and laparotomy. SOCIAL HISTORY: No alcohol or tobacco abuse. MEDICATIONS: None. ALLERGIES: NONE. REVIEW OF SYSTEMS: Otherwise, negative. PHYSICAL EXAMINATION: GENERAL: He is awake, alert, and responsive,. VITAL SIGNS: Temperature 98, pulse 80, respirations 20, blood pressure 111/79, and saturations on 2 L were at least 94% to 95%. CHEST: Bilateral crackles. CARDIAC: Normal S1 and S2. No gallops. ABDOMEN: No masses. LABORATORY DATA: Repeat serology for coronavirus is pending. Infectious Disease was consulted. His white count is 7000, H and H are 14 and 43, and platelet count is normal. His lytes are normal. LDH is 364. C-reactive protein is 3.8. It has come down since admission, it was 6. An x-ray shows rather impressive bilateral pulmonary infiltrates. ASSESSMENT: Bilateral bronchopneumonia, coronavirus positive, pneumonia, and respiratory failure. The patient's chest x-ray has not improved since admission. residual scarring in the lung. His previous chest x-ray from four years ago showed normal values. PLAN: I have started on doxycycline and steroids for presumed pulmonary fibrosis secondary to coronavirus. We will follow. Otherwise supportive care and PT. Consultation note, 70 minutes, 50% direct patient care. Job ID: [id number] MTDD
[2020-02-29 12:43] LABS: SARS-CoV-2 IgG Index 6.87 S/CO (< 1.40)
--- NOTE | 2020-02-29 13:03 | PDOC.HOSPP ---
- Subjective Encounter Date: 02/29/20 Encounter Time: 13:03 Subjective: Patient seen and examined for COVID Pneumonia. SOB improving. No new complaints. No overnight events - Objective Vital Signs & Weight: Vital Signs (12 hours) Temp Pulse Resp BP Pulse Ox 02/29/20 04:00 98.4 F 80 20 111/79 93 L Weight Weight 270 lb I&O: 02/28/20 02/29/20 03/01/20 06:59 06:59 06:59 Intake Total 960 1000 Balance 960 1000 Result Diagrams: 03/01/20 05:53 03/01/20 05:53 Radiology Reviewed by me: Yes (CXR - Pneumonia) Hospitalist ROS - Review of Systems Respiratory: denies: cough, dry, shortness of breath, hemoptysis, SOB with excertion, pleuritic pain, sputum, wheezing, other Cardiovascular: denies: chest pain, palpitations, orthopnea, paroxysmal noc. dyspnea, edema, light headedness, other Gastrointestinal: denies: nausea, vomiting, abdominal pain, diarrhea, constipation, melena, hematochezia, other - Medication Medications: Active Medications Generic Name Dose Route Start Last Admin Trade Name Freq PRN Reason Stop Dose Admin Acetaminophen 1,000 mg 02/22/20 19:32 02/26/20 21:42 Tylenol PO 1,000 mg Q6H PRN Administration Mild Pain (1-3) Albuterol Sulfate 2 puff 02/22/20 22:30 02/29/20 12:25 Proventil Hfa INH 2 puff [id number] MIREYA Administration Artificial Tears 0 drop 02/24/20 08:48 02/24/20 12:13 Tears Naturale EA EYE 1 drop PRN PRN Administration Dry Eyes Ascorbic Acid 1,000 mg 02/24/20 15:00 02/29/20 09:18 Vitamin C PO 1,000 mg TID MIREYA Administration Benzonatate 100 mg 02/22/20 19:32 02/23/20 20:25 Tessalon PO 100 mg Q6H PRN Administration Cough Carvedilol 3.125 mg 02/25/20 09:00 02/29/20 09:18 Coreg PO 3.125 mg BID MIREYA Administration Guaifenesin 600 mg 02/24/20 21:00 02/29/20 09:18 Mucinex PO 600 mg Q12HR MIREYA Administration Nystatin 500,000 units 02/27/20 21:00 02/29/20 12:25 Mycostatin SSW 500,000 units QID MIREYA Administration Pantoprazole Sodium 40 mg 02/25/20 09:00 02/29/20 09:18 Protonix PO 40 mg DAILY MIREYA Administration Prednisone 40 mg 02/29/20 12:00 02/29/20 12:26 Prednisone PO 02/29/20 14:00 40 mg 1200 MIREYA Administration Saccharomyces Boulardii 250 mg 02/25/20 09:00 02/29/20 09:18 Florastor PO 250 mg DAILY MIREYA Administration Zinc Sulfate 220 mg 02/22/20 21:00 02/28/20 21:21 Zinc Sulfate PO 220 mg HS MIREYA Administration - Exam General Appearance: NAD Neck: supple, no JVD Heart: RRR, no gallops Respiratory: no wheezes, rhonchi Gastrointestinal: soft, non-tender, non-distended, normal bowel sounds Extremities: no cyanosis, no clubbing Neurological: no new deficit Hosp A/P - Plan DVT proph w/lovenox, DVT proph w/SCDs Acute hypoxic resp failure due to COVID Pneumonia Obesity BMI 38.7 Hyponatremia GERD Thrombocytopenia HTN PLAN: Case d/w Dr Flynn Doxycycline and Prednisone started per Dr Flynn Cont MDIs and other meds as above Cont wean O2 AM labs
[2020-02-29 13:07] LABS: SARS-CoV-2 IgG Ab Reactive (NonReactive)
[2020-02-29] MEDS: Doxycycline 100 MG CAP PO SCH (21:09)
[2020-02-29] MEDS: Zinc Sulfate 220 MG CAP PO SCH (21:10)
[2020-03-01] MEDS: PROVENTIL INHALER 6.7 G (200 INHALATIONS) INH SCH ×4 (02:15→14:48)
[2020-03-01 06:44] LABS: ALT (SGPT) 85 U/L (8-55); AST (SGOT) 52 U/L (5-34); Albumin 3.4 g/dL (3.4-4.8); Alkaline Phosphatase 90 U/L (40-110); Anion Gap 10 mmol/L (10-20); BUN (Urea Nitrogen) 12 mg/dL (8.4-25.7); Bilirubin, Total 0.6 mg/dL (0.2-1.2); CRP (Inflammatory) 1.08 mg/dL (= or < 0.5); Calc. Creatinine Clearance 164 mL/min (70-130); Calcium 8.9 mg/dL (7.8-10.44); Carbon Dioxide 27 mmol/L (23-31); Chloride 104 mmol/L (98-107); Estimated GFR-MDRD Greater than 90; Globulin 3.8 g/dL (2.4-3.5); Glucose 95 mg/dL (80-115); Potassium 3.9 mmol/L (3.5-5.1); Protein, Total 7.2 g/dL (5.8-8.1); Sodium 137 mmol/L (136-145)
[2020-03-01 06:52] LABS: Band 1 % (5-11); Lymphocytes 32 % (21-51); MDiff Complete? YES; Mean Corpuscular HGB CONC 31.8 g/dL (32.0-36.0); Mean Corpuscular Hemoglobin 29.4 pg (27.0-31.0); Mean Corpuscular Volume 92.7 fL (78.0-98.0); Mean Platelet Volume 9.2 fL (7.4-10.4); Monocytes 10 % (0-10); Neutrophil 57 % (42-75); Platelet Count 318 thou/uL (130-400); RBC Distribution Width 13.8 % (11.5-14.5); White Blood Cell (WBC) Count 9.3 thou/uL (4.8-10.8)
[2020-03-01] MEDS: Saccharomyces boulardii 250 MG CAP PO SCH (07:23)
[2020-03-01] MEDS: Doxycycline 100 MG CAP PO SCH (07:23)
[2020-03-01] MEDS: Enoxaparin Sodium 40 MG/0.4 ML SYRINGE SC SCH (07:23)
[2020-03-01] MEDS: Nystatin 500,000 UNITS/5 ML UDCUP SSW SCH ×2 (07:23→12:21)
[2020-03-01] MEDS: Ascorbic Acid 500 mg Chewable Tablet PO SCH ×2 (07:24→15:11)
[2020-03-01] MEDS: guaiFENesin ER 600 MG TAB PO SCH (07:24)
[2020-03-01] MEDS: Carvedilol 3.125 MG TAB PO SCH (07:24)
[2020-03-01] MEDS ORDERED: predniSONE 20 MG TAB PO SCH (08:00)
--- NOTE | 2020-03-01 09:54 | PRG ---
DATE OF SERVICE: 03/01/2020 SUBJECTIVE: Mike Ely is a 64-year-old patient, who is doing well this morning. OBJECTIVE: VITAL SIGNS: Temperature 97, pulse 68, respiratory rate 20, saturations are much improved 93% on 1 L, blood pressure CHEST: No crackles. CARDIAC: Normal S1, S2. No gallops. ABDOMEN: No masses. DIAGNOSTIC DATA: Last chest x-ray taken 2 days ago still showed significant residual bilateral infiltrates. ASSESSMENT AND PLAN: 1. Coronavirus positive. 2. Bilateral bronchopneumonia. 3. Respiratory failure. The patient's oxygen is improved. I will continue doxycycline for 10 days, prednisone taper for 2 weeks. His sats have been 90% on room air. He can be discharged any time. Follow up with the primary care physician. Job ID: [id number]
[2020-03-01 12:44] VITALS: TEMP 98.3
[2020-03-01 16:56] VITALS: BP 126/82
--- NOTE | 2020-03-01 19:18 | DIS ---
DATE OF ADMISSION: 02/22/2020 DATE OF DISCHARGE: 03/01/2020 DISCHARGE DISPOSITION: Home. FOLLOWUP: Follow up with primary care physician at [facility], [place] in 1 week. DISCHARGE CONDITION: The patient was seen on the day of discharge, denies any new complaints. PHYSICAL EXAMINATION: Vital signs on the day of discharge showed temperature 98.3, pulse of 68, respirations of 18, blood pressure of 126/82 with O2 saturation of 94% on room air. ALLERGIES: NO KNOWN DRUG ALLERGIES. DISCHARGE MEDICATIONS: 1. Prednisone taper. 2. Doxycycline 100 mg twice daily for 10 days. All other home medications were left unchanged. DIAGNOSTIC STUDIES: Repeat chest x-ray after two weeks is recommended. Bilateral lower extremity Doppler was negative for DVT. The patient was extensively counseled on COVID-19 isolation. BRIEF HOSPITAL COURSE: The patient is a 64-year-old male, who was recently diagnosed with COVID infection, presented to the hospital with shortness of breath and generalized malaise. He was found to have a temperature of 100.1 degree Fahrenheit with respirations of 40 and hypoxemia. He was started on O2 supplementation along with azithromycin, Plaquenil, vitamin C, and zinc. CT angiogram of the chest was negative for pulmonary embolism. It showed extensive consolidation throughout the lung leone suggestive of pneumonia. He was evaluated by Pulmonary and Infectious Disease. His inflammatory markers are gradually improving. He has been cleared by consultants for discharge. SIGNIFICANT LABORATORY DATA: His COVID antibody was 6.87. Ferritin improved to 454 from 1800. D-dimer improved to 2.0 from 2.95. CRP improved to 1.0 from 6.0. The patient understands the above plan of care. FINAL DIAGNOSES: 1. Acute hypoxic respiratory failure secondary to COVID pneumonia. 2. Obesity with a BMI of 38.7. 3. Hyponatremia. 4. Gastroesophageal reflux disease. 5. Thrombocytopenia. 6. Hypertension. Job ID: [id number]
--- NOTE | 2020-03-03 23:24 | PQF ---
Mike Ely MALIK MD [id number] CLINICAL DOCUMENTATION CLARIFICATION FORM: POST DISCHARGE Addendum to original discharge summary date: ____ Late entry note date: __ DATE:03/03/2020 ATTN:Matthew Vance Please exercise your independent, professional judgment in responding to the clarification form. Clinical indicators are provided on the bottom of this form for your review Please check appropriate box(es): [ ] Sepsis due to Covid-19 Pneumonia [ x ] Severe sepsis with acute organ dysfunction of respiratory failure (Examples: respiratory failure, encephalopathy, acute kidney failure, other) [ ] Septic Shock [ ] Localized infection without sepsis [ ] Other diagnosis [ ] Unable to determine In addition, please specify: Present on Admission (POA): [ ] Yes [ ] No [ ] Unable to determine For continuity of documentation, please document condition throughout progress notes and discharge summary. Thank You. CLINICAL INDICATORS - SIGNS / SYMPTOMS / LABS Covid test 02/27 Positive Blood culture 02/21 Negative growth in 5 days Labroatory WBC 5.8, Plt count 115, Band 1, Neutrophils 59.0, Lactic acid 1.0 Vital signs 02/21 BP 101/59, Pulse 80, Resp 42, Temp 101.3 ED notes p2 02/21 SIRS Scoring: Yes, patient did meet atleast 2 criteria H&P p1 02/21 Dr Mayers Complaining of SOB, fatigue and weakness for the last 7- 10days H&P p1 02/21 Dr Mayers He states he was diagnosed with Covid-19 on 02/15/2020 H&P p1 02/21 Dr Mayers 'underwent chest imaging bilateral infilatrates confirming Pneumonia in context of Covd-19 H&P p1 02/21 Dr Mayers Thrombocytopenia 2/2 to Covid19 and Pneumonia H&P p3 02/21 Dr Mayers Covid 19 and Pneumonia with Acute hypoxic respiratory failure RISK FACTORS H&P p1 02/21 64 year-old Male H&P p1 02/21 HTN H&P p3 02/21 Covid 19 and Pneumonia H&P p3 02/21 Obesity TREATMENTS: Respiratory Panel 02/21 Oxygen 2L Isolation 02/21 Covid Test 02/21DEC 13 Plaquenil 200mg oral MAR 02/22 IV Azithromycin 500 mg MAR 02/28 Vibramycin 100mg oral ID Consult 02/27 Neil Olvera Chest X-ray 02/21 Blood culture 02/21 (This form is maintained as a part of the permanent medical record) 2014 [employer], [employer]. All Rights Reserved [email or web address]
--- NOTE | 2020-03-06 19:38 | PQF ---
Mike Ely MALIK MD [id number] CLINICAL DOCUMENTATION CLARIFICATION FORM: POST DISCHARGE Addendum to original discharge summary date: ____ Late entry note date: __ DATE:03/06/2020 ATTN:Matthew Vance Please exercise your independent, professional judgment in responding to the clarification form. Clinical indicators are provided on the bottom of this form for your review Diagnosis: Severe Sepsis Present on Admission (POA): [ x ] Yes [ ] No [ ] Unable to determine Coding guidelines require hospitals to identify whether a diagnosis was present on admission (POA) or not. To accurately assign the appropriate POA indicator, this information must be clearly documented within the medical record. CLINICAL INDICATORS - SIGNS / SYMPTOMS / LABS Covid test 02/27 Positive Blood culture 02/21 Negative growth in 5 days Laboratory WBC 5.8, Plt count 115, Band 1, Neutrophils 59.0, Lactic acid 1.0 Vital signs 02/21 BP 101/59, Pulse 80, Resp 42, Temp 101.3 ED notes p2 02/21 SIRS Scoring: Yes, patient did meet at least 2 criteria H&P p1 02/21 Dr Mayers Complaining of SOB, fatigue and weakness for the last 7- 10days H&P p1 02/21 Dr Mayers He states he was diagnosed with Covid-19 on 02/15/2020 H&P p1 02/21 Dr Mayers 'underwent chest imaging bilateral infiltrates confirming Pneumonia in context of Covd-19 H&P p1 02/21 Dr Mayers Thrombocytopenia 2/2 to Covid19 and Pneumonia H&P p3 02/21 Dr Mayers Covid 19 and Pneumonia with Acute hypoxic respiratory failure Physician Documentation 03/06 Severe Sepsis RISK FACTORS H&P p1 02/21 64 year-old Male H&P p1 02/21 HTN H&P p3 02/21 Covid 19 and Pneumonia H&P p3 02/21 Obesity TREATMENTS: Respiratory Panel 02/21 Oxygen 2L Isolation 02/21 Covid Test 02/21DEC 13 Plaquenil 200mg oral MAR 02/22 IV Azithromycin 500 mg MAR 02/28 Vibramycin 100mg oral ID Consult 02/27 Neil Olvera Chest X-ray 02/21 Blood culture 02/21 (This form is maintained as a part of the permanent medical record) 2014 [employer], [employer] All Rights Reserved [email or web address]
== END 2020-03-01 17:01 | disposition home or self-care (01) | DRG 871 ==
LOC: ERS 10:03 → T4-B 15:22
PROVIDERS: ADMIT Family Medicine; ATTEND Internal Medicine
PROC: 8E0ZXY6 Isolation (ICD-10-PCS; principal; 2020-02-22)
DX: A41.9 Sepsis, unspecified organism (principal); U07.1 COVID-19; J12.89 Other viral pneumonia; J96.01 Acute respiratory failure with hypoxia; E87.1 Hypo-osmolality and hyponatremia; R65.20 Severe sepsis without septic shock; E66.9 Obesity, unspecified; K21.9 Gastro-esophageal reflux disease without esophagitis; D69.6 Thrombocytopenia, unspecified; I10 Essential (primary) hypertension; K29.70 Gastritis, unspecified, without bleeding; Z96.659 Presence of unspecified artificial knee joint; Z68.38 Body mass index [BMI] 38.0-38.9, adult; Z87.11 Personal history of peptic ulcer disease; Z90.49 Acquired absence of other specified parts of digestive tract; Z79.899 Other long term (current) drug therapy
CPT/HCPCS: 36415; 71045; 71275; 80048; 80053; 82728; 83605; 83615; 83735; 83880; 84145; 84484; 85007; 85025; 85027; 85379; 86140; 86769; 87040; 93005; 93010; 93970; 96374; J0456; J1650; J1885; J7050; J7512; Q9967

== ENCOUNTER 2021-11-19 11:09 | Outpatient (CLI) | payer MEDICARE | END 2021-11-19 11:10 | disposition home or self-care (01) | LOC: BICRAD 11:09 | PROVIDERS: ATTEND Family Medicine | DX: J45.30 Mild persistent asthma, uncomplicated (principal) | CPT/HCPCS: 71046 ==

== ENCOUNTER 2022-02-23 14:54 | Outpatient (CLI) | payer MEDICARE | END 2022-02-23 14:55 | disposition home or self-care (01) | LOC: ULT 14:54 | PROVIDERS: ATTEND Family Medicine | DX: I83.813 Varicose veins of bilateral lower extremities with pain (principal) | CPT/HCPCS: 93970 ==

== ENCOUNTER 2022-11-12 19:00 | Outpatient (CLI) | payer MEDICARE, OTHER | END 2022-11-12 19:01 | disposition home or self-care (01) | LOC: SLEEPLAB 19:00 | PROVIDERS: ATTEND Family Medicine | DX: G47.33 Obstructive sleep apnea (adult) (pediatric) (principal); G47.10 Hypersomnia, unspecified; R53.83 Other fatigue; F32.A Depression, unspecified; E11.9 Type 2 diabetes mellitus without complications; E66.9 Obesity, unspecified; R06.83 Snoring | CPT/HCPCS: 95810 ==

== ENCOUNTER 2022-12-24 19:30 | Outpatient (CLI) | payer MEDICARE | END 2022-12-24 19:31 | disposition home or self-care (01) | LOC: SLEEPLAB 19:30 | PROVIDERS: ATTEND Family Medicine | DX: G47.33 Obstructive sleep apnea (adult) (pediatric) (principal); G47.10 Hypersomnia, unspecified | CPT/HCPCS: 95811 ==